=== PATIENT | female | born 1945 | race Caucasian/White ===

== ENCOUNTER → 2020-11-15 | Outpatient (CLI) | payer MEDICARE ==
[~2020-11-15] MED LIST: AMLO2.5T5 PO; ASPI-963 PO; ATOR20TA37 PO; CLON2TAB PO; CLOP75TA52 PO; LEVO100T5 PO; LIOT5TAB11 PO; OXYC20TA2 PO; VANC1VIA3 PO
== END | disposition home or self-care (01) ==
LOC: CFH 13:09
PROVIDERS: ATTEND Family Medicine
DX: Z12.2 Encounter for screening for malignant neoplasm of respiratory organs (principal); J43.9 Emphysema, unspecified; F17.210 Nicotine dependence, cigarettes, uncomplicated
CPT/HCPCS: 71271